=== PATIENT | female | born 1940 | race Caucasian/White ===

== ENCOUNTER → 2017-01-01 | Outpatient (CLI) | payer MEDICARE ==
--- NOTE | 2017-01-01 11:27 | RAD ---
DATE: 01/01/2017 EXAM: DIGITAL DIAGNOSTIC BILATERAL, BREAST LEFT HISTORY: Palpable lump left breast 7:00 location. COMPARISON: 02/12/2016. This study was interpreted with the benefit of Computerized Aided Detection (CAD). FINDINGS: Bilateral CC and MLO views as well as rolled cc views of the right breast were obtained. A BB marker was placed at the area of palpable abnormality in the lower inner left breast. Benign nodule outer left breast consistent with intraparenchymal lymph node is noted and stable. No new mass is detected. No malignant appearing microcalcifications are seen. There are benign calcifications bilaterally. The axillae are unremarkable. Breast Density: HETERO The breast parenchyma is heterogeneously dense, which could reduce sensitivity of mammography. Breast parenchyma level C. IMPRESSION: No mammographic features suspicious for malignancy are identified. Even so, sonographic interrogation of the area of palpable abnormality in the left breast is recommended. Left breast ultrasound: Sonographic interrogation of the area of palpable abnormality at the 7:00 location was performed. No solid or cystic mass is detected. Impression: No sonographic abnormality is identified. Continued close clinical and self breast exam is recommended to confirm stability of the palpable abnormality. Negative imaging should not necessarily preclude biopsy of a clinically suspicious abnormality. BI-RADS CATEGORY: 1 NEGATIVE RECOMMENDED FOLLOW-UP: 12M 12 MONTH FOLLOW-UP PQRS compliance statement: Patient information was entered into a reminder system with a target due date 01/01/2018 for the next mammogram. Mammography is a sensitive method for finding small breast cancers, but it does not detect them all and is not a substitute for careful clinical examination. A negative mammogram does not negate a clinically suspicious finding and should not result in delay in biopsying a clinically suspicious abnormality. "Our facility is accredited by the [employer] Mammography Program."
== END | disposition home or self-care (01) ==
LOC: MAMMO 09:45
PROVIDERS: ATTEND Family Medicine
DX: D49.3 Neoplasm of unspecified behavior of breast (principal); N63.20 Unspecified lump in the left breast, unspecified quadrant; R92.1 Mammographic calcification found on diagnostic imaging of breast
CPT/HCPCS: 76641; G0204; 77066

== ENCOUNTER → 2021-01-16 | Outpatient (CLI) | payer MEDICARE ==
--- NOTE | 2021-01-16 14:13 | RAD ---
EXAM: DUAL ENERGY X-RAY ABSORPTIOMETRY (DEXA). HISTORY: Postmenopausal screening. FINDINGS: The lowest measured T-score is 1.9 in the right hip, based on a bone mineral density of 1.1 87 g/cm^2. Refer to the worksheets for full detail. There has been an 8.9 percent decrease in density of the right hip and 2.6 percent increase in densit y of the lumbar spine compared to a study performed 12/10/2009. IMPRESSION: 1. Normal. Bone mineral density yields a T-score of -1.0 or greater. Fracture risk is low. 2. FRAX report: Not calculated. METHODOLOGY: Dual energy x-ray absorptiometry was performed to measure bone mineral density. The foll owing analysis is based on the 2019 Official Positions of the International Society for Clinical Dens itometry: Measurements of the hips and the average of L1-L4 are preferred. When the spine and/or hip cannot be feasibly measured or interpreted, or in the setting of hyperparathyroidism, distal radial bone minera l density may be measured. The lumbar spine T-score is based on the average bone mineral density of L1-L4. In the setting of art ifact or anatomic abnormality, some lumbar levels may be excluded, and the remaining levels used for calculation. A single lumbar level is not used for diagnosis, and if only a single level is available for assessment, another anatomic site will be used to assign a diagnosis. The hip T-score is based on the bone mineral density measurement of the femoral neck or total proxima l femur of either side, whichever is lowest. Bilateral mean values are not used for diagnosis. The forearm T-score is derived from 33% of the distal radius of the nondominant forearm. Electronically signed by: Kelli Wasserman MD (01/16/2021 2:10 PM) [id number]
== END ==
LOC: DXRAD 13:29
PROVIDERS: ATTEND Family Medicine
DX: Z78.0 Asymptomatic menopausal state (principal)
CPT/HCPCS: 77080